=== PATIENT | male | born 1995 | race Caucasian/White ===

== ENCOUNTER 2020-06-10 02:06 | Emergency (ER) | payer BC, SELFPAY ==
[2020-06-10 02:21] VITALS: BP 104/65; PULSE 83; RESP 24; TEMP 36.6; O2SAT 98; BMI 32.1
--- NOTE | 2020-06-10 02:36 | CTR_ITS ---
PROCEDURE INFORMATION: Exam: CT Abdomen And Pelvis Without Contrast Exam date and time: 06/10/2020 2:50 AM Age: 24 years old Clinical indication: Abdominal pain; Flank; Right; Additional info: R flank pain TECHNIQUE: Imaging protocol: Computed tomography of the abdomen and pelvis without contrast. Radiation optimization: All CT scans at this facility use at least one of these dose optimization techniques: automated exposure control; mA and/or kV adjustment per patient size (includes targeted exams where dose is matched to clinical indication); or iterative reconstruction. COMPARISON: CT Abdomen/Pelvis Renal [id number] 04/05/2016 1:41 PM RADIATION DOSE METRICS: Total DLP (mGy-cm): 2150.83 FINDINGS: Liver: Normal. No mass. Gallbladder and bile ducts: Normal. No calcified stones. No ductal dilation. Pancreas: Normal. No ductal dilation. Spleen: Normal. No splenomegaly. Adrenals: Normal. No mass. Kidneys and ureters: A punctate stone is seen in the right lower ureter with mild hydronephrosis. Additional bilateral nonobstructing intrarenal stones are present. Stomach and bowel: Unremarkable. No obstruction. No mucosal thickening. Appendix: No evidence of appendicitis. Intraperitoneal space: Unremarkable. No free air. No significant fluid collection. Vasculature: Unremarkable. No abdominal aortic aneurysm. Lymph nodes: Unremarkable. No enlarged lymph nodes. Bladder: Unremarkable as visualized. Reproductive: Unremarkable as visualized. Bones/joints: Unremarkable. No acute fracture. Soft tissues: A small fat containing umbilical hernia is present. CT/CT kidney stone [id number] IMPRESSION: 1. A punctate stone is seen in the right lower ureter with mild hydronephrosis. 2. Additional bilateral intrarenal stones are also seen. 3. A small umbilical hernia is present. Radiation Dose CTDIVOL = (mGy): DLP = 2150.83 (mGy-cm)
[2020-06-10 02:50] LABS: Basophils # 0.1 10^3/uL (0.0-0.1); Basophils % 0.7 %; Eosinophils # 0.1 10^3/uL (0.0-0.8); Eosinophils % 1.3 %; Hematocrit 40.8 % (42.0-52.0); Hemoglobin 13.2 g/dL (11.7-16.6); Lymphocytes # 3.2 10^3/uL (0.8-4.8); Mean Corpuscular HGB Conc 32.4 g/dL (30.0-36.0); Mean Corpuscular Hemoglobin 28.3 pg (28.0-34.0); Mean Corpuscular Volume 87.6 fL (80-94); Mean Platelet Volume 10.4 fL (7.4-10.4); Monocytes # 0.8 10^3/uL (0.2-0.9); Monocytes % 7.6 %; Neutrophils # 6.45 10^3/uL (1.8-7.7); Neutrophils % 60.1 %; Nucleated Red Blood Cells % 0 %; Platelet Count 300 10^3/cmm (130-400); Red Blood Count 4.66 10^6/uL (4.1-5.3); White Blood Count 10.7 10^3/uL (4.0-10.0)
[2020-06-10 03:03] VITALS: RESP 16
[2020-06-10] MEDS: sodium chloride 0.9% 1,000 ML 999 ML IV (03:03)
[2020-06-10] MEDS: HYDROmorphone 1 mg/mL INJ 1 mL IVP (03:03)
[2020-06-10] MEDS: ondansetron 2 mg/ML SDV 2 mL 4 MG IVP (03:03)
[2020-06-10 03:08] LABS: Alanine Aminotransferase 38 U/L (0-41); Albumin Level 4.3 g/dL (3.5-5.2); Alkaline Phosphatase 62 IU/L (40-130); Anion Gap 14.6 (5-19); Aspartate Amino Transferase 20 U/L (0-40); Blood Urea Nitrogen 23 mg/dL (6-20); Calcium 8.7 mg/dL (8.5-10.5); Carbon Dioxide 23 mmol/L (22-29); Chloride 105 mmol/L (98-107); Globulin 2.6 g/dL (1.3-4.6); Glucose 121 mg/dL (65-115); Lipase 34 U/L (13-60); Osmolality Calculated 286 mOsm/kg (285-295); Potassium 3.6 mmol/L (3.5-5.1); Sodium 139 mmol/L (136-145); Total Bilirubin 0.3 mg/dL (0.15-1.2); Total Protein 6.9 g/dL (6.6-8.7)
[2020-06-10 03:31] LABS: Add Urine Microscopic? YES; Bilirubin Urine Neg (NEGATIVE); Blood Urine 2+ (Negative); Glucose Urine UA Norm (Normal); Ketones Urine Negative (Negative); Leukocyte Esterase Urine Negative (Negative); Nitrate Urine Negative (Negative); Protein Urine Neg (Negative); Urine Appearance Clear (CLEAR); Urine Color Yellow (Yellow); Urobilinogen Urine Norm (Negative); pH Urine 5 (5-7)
[2020-06-10 03:33] LABS: WBC Urine 0-4 /hpf (0-5)
[2020-06-10 03:34] LABS: Add Urine Culture? No; Bacteria Urine TRACE; Mucus Urine TRACE; Squamous Epithelial Cell Urine 0-4 (0-5)
[2020-06-10] MEDS: ketorolac 30 mg/mL INJ IVP (04:16)
[2020-06-10 04:17] VITALS: RESP 20
[2020-06-10] MEDS: HYDROmorphone 1 mg/mL INJ 1 mL 0.5 MG IVP (04:17)
[2020-06-10 04:40] VITALS: BP 132/88; PULSE 88; RESP 18; TEMP 36.7; O2SAT 99
--- NOTE | 2020-06-10 23:04 | W.ED.ABDPA2 ---
HPI - Abdominal Pain General: Chief Complaint: Abdominal Pain Stated Complaint: possible kidney stone Time Seen by Provider: 06/10/20 02:31 History of Present Illness: HPI narrative: 24-year-old male complains of right flank pain. The pain began around midnight. He was lying in bed. He has had pain and nausea. He has had kidney stones in the past, and the pain is similar. He denies any fever, gross hematuria, diarrhea, etc. MD elicited complaint: abdominal pain Pertinent past history: kidney stones Onset (ago): hour(s) Pain Consistency: constant Location: R flank Severity: moderate Quality: stabbing and aching Radiation: none Migration to: no migration Exacerbating factors: nothing Relieving factors: nothing Associated Symptoms: Reports nausea; Denies constipation, diarrhea, dysuria, fever(s), hematuria and vomiting Review of Systems Const: Denies: fever(s) Eyes: Denies: change in vision or blurry vision ENMT: Denies: swelling of lips/tongue, bleeding gums, change in hearing, epistaxis, post nasal drip or sinus pain Card: Denies: chest pain, palpitations, irregular heart rhythm, dyspnea on exertion or orthopnea Resp: Denies: dyspnea, productive cough, non-productive cough or wheezing GI: Reports: nausea; Denies: vomiting, diarrhea or constipation : Denies: dysuria or hematuria Musc: Reports: back pain; Denies: neck pain Skin/Breast: Denies: rash, pruritus or erythema Neuro: Denies: headache(s), dizziness or vertigo Psych: Denies: anxiety PFSH ED PFSH: Family History (Updated 05/09/20 @ 14:37 by BAILEY Orozco) Mother Kidney stone Social History (Updated 05/09/20 @ 14:38 by BAILEY Orozco) Smoking and tobacco status: current some day smoker Alcohol intake: unknown Adopted: No Caregiver/support person: No Lives independently: No Physical Exam Const: GENERAL APPEARANCE: well developed ORIENTATION/CONSCIOUSNESS: Yes oriented to person, Yes oriented to place and Yes oriented to time HENMT: COMMON NORMALS: normocephalic, external ears normal and Normal external nose present HEAD & SCALP: normocephalic FACE & SINUS: normal facial exam NOSE: Normal external nose present and No nasal discharge present EXTERNAL EAR: Yes external ears normal THROAT: posterior oropharynx normal; no peritonsillar mass Eye: COMMON NORMALS: Equal, round and reactive pupils present, EOMs intact bilaterally and conjunctivae normal EYELID: eyelids normal CONJUNCTIVA: Yes conjunctivae normal PUPIL: Yes Equal, round and reactive pupils present Neck/C-Spine: GENERAL: No tracheal deviation Chest: COMMONS NORMALS: normal inspection of the chest CHEST: No tenderness Resp: COMMON NORMALS: clear to auscultation bilaterally EFFORT & INSPECTION: No tachypneic, No respiratory distress, No retractions, No uses accessory muscles and No tracheal deviation AUSCULTATION: clear to auscultation bilaterally, no rhonchi, no wheezes and lung sounds not diminished Cardio: COMMON NORMALS: regular rate and regular rhythm RATE: regular rate RHYTHM: regular rhythm HEART SOUNDS: no murmurs PERIPHERAL PULSES: radial pulses present GI: INSPECTION: No abdominal distension AUSCULTATION: No Hyperactive bowel sounds present and No Hypoactive bowel sounds present PALPATION: No Guarding due to palpation present (GI) and No Rigid due to palpation PERCUSSION: no dullness to percussion and no tympanic to percussion : BLADDER/KIDNEY EXAM: Yes CVA tenderness on the right Back/Pelvis: GENERAL BACK: Yes CVA tenderness Neuro: SENSORIUM/ORIENTATION: Yes oriented to person, Yes oriented to place and Yes oriented to time Psych: COMMON NORMALS: mental status grossly normal Skin: COMMON NORMALS: no rashes or lesions noted GENERAL SKIN EXAM: no rashes or lesions noted Course Vital Signs: Vital signs: Vital Signs Temperature 98.0 F 06/10/20 04:40 Pulse Rate 88 06/10/20 04:40 Respiratory Rate 18 06/10/20 04:40 Blood Pressure 132/88 06/10/20 04:40 Pulse Oximetry 99 06/10/20 04:40 MDM - Abdominal Pain MDM Narrative: Medical decision making narrative: Urine shows no infection. There is hematuria. BUN is mildly elevated. Other labs are not terribly remarkable. CT shows a punctate stone in the right lower ureter consistent with his symptoms. No evidence of pyelonephritis. He should be able to pass on his own. He will be allowed home with pain medication and nausea medication. They know to return for any confounding factors. Lab Data: Labs: Lab Results 06/10/20 06/10/20 06/10/20 Range/Units 02:44 02:44 03:12 WBC 10.7 H (4.0-10.0) 10^3/ uL RBC 4.66 (4.1-5.3) 10^6/u L Hgb 13.2 (11.7-16.6) g/dL Hct 40.8 L (42.0-52.0) % MCV 87.6 (80-94) fL MCH 28.3 (28.0-34.0) pg MCHC 32.4 (30.0-36.0) g/dL RDW 13.0 (12.1-15.1) % Plt Count 300 (130-400) 10^3/c mm MPV 10.4 (7.4-10.4) fL Neut % (Auto) 60.1 % Lymph % (Auto) 30.0 % Arthur % (Auto) 7.6 % Eos % (Auto) 1.3 % Baso % (Auto) 0.7 % Neut # (Auto) 6.45 (1.8-7.7) 10^3/u L Lymph # (Auto) 3.2 (0.8-4.8) 10^3/u L Arthur # (Auto) 0.8 (0.2-0.9) 10^3/u L Eos # (Auto) 0.1 (0.0-0.8) 10^3/u L Baso # (Auto) 0.1 (0.0-0.1) 10^3/u L Nucleated RBC % (a uto) 0 % Nucleated RBCs # 0.0 /100WBC Sodium 139 (136-145) mmol/L Potassium 3.6 (3.5-5.1) mmol/L Chloride 105 (98-107) mmol/L Carbon Dioxide 23 (22-29) mmol/L Anion Gap 14.6 (5-19) BUN 23 H (6-20) mg/dL Creatinine 1.1 (0.7-1.2) mg/dL GFR Calculation 83.0 L (90-130) mL/min Glucose 121 H (65-115) mg/dL Calculated Osmolal ity 286 (285-295) mOsm/k g Calcium 8.7 (8.5-10.5) mg/dL Total Bilirubin 0.3 (0.15-1.2) mg/dL AST 20 (0-40) U/L ALT 38 (0-41) U/L Alkaline Phosphata se 62 (40-130) IU/L Total Protein 6.9 (6.6-8.7) g/dL Albumin 4.3 (3.5-5.2) g/dL Globulin 2.6 (1.3-4.6) g/dL Lipase 34 (13-60) U/L Urine Color Yellow (Yellow) Urine Appearance Clear (CLEAR) Urine pH 5 (5-7) Ur Specific Gravit y 1.020 (1.005-1.030) Urine Protein Neg (Negative) Urine Glucose (UA) Norm (Normal) Urine Ketones Negative (Negative) Urine Blood 2+ H (Negative) Urine Nitrate Negative (Negative) Urine Bilirubin Neg (NEGATIVE) Urine Urobilinogen Norm (Negative) mg/dL Ur Leukocyte Lizy ase Negative (Negative) Urine RBC 5-10 H (0-2) /hpf Urine WBC 0-4 H (0-5) /hpf Ur Squamous Epith Cells 0-4 H (0-5) Amorphous Sediment Not Reportable Urine Bacteria Trace (NONE) Urine Mucus Trace Discharge Plan Discharge Patient Disposition: Home Clinical Impression: Ureterolithiasis Condition: Stable Prescriptions: New Zofran 4 mg tablet 4 mg PO Q6H PRN (Reason: nausea and vomiting) Qty: 10 RF: 0 Percocet 7.5-325 mg tablet 1 tab PO Q6H PRN (Reason: pain) Qty: 14 RF: 0 ketorolac 10 mg tablet 10 mg PO TID PRN (Reason: pain) Qty: 10 RF: 0 Discharge Orders: Discharge Order (Routine); Ordered 06/10/20 Ordered By: Umesh Elizabeth Referrals: Abdirizak Newton DO [Primary Care Provider] - 4-7 days Discharge Diet: Advance as tolerated Discharge Activity: Increase activity as tolerated Patient Instructions: Kidney Stones (ED) Activity Restrictions/Additional Instructions: Return for fever greater than 100, worsening pain or vomiting despite treatment, other concerning symptoms. Strain your urine if you are able. Discharge Date/Time: 06/10/20 04:42 Coding Level of Care Code ED Flexographic Press Plate Setter for Ant Duffy
== END 2020-06-10 04:42 | disposition home or self-care (01) ==
PROVIDERS: Nurse Practitioner Family; Emergency Provider Emergency Medicine; PCP Family Medicine
DX: N20.1 Calculus of ureter (principal); F17.210 Nicotine dependence, cigarettes, uncomplicated
CPT/HCPCS: 12345; 74176; 80053; 81001; 83690; 85025; 96361; 96374; 96375; 96376; 99283; J1170; J1885; J2405; J7030

== ENCOUNTER 2021-03-22 09:17 | Outpatient (CLI) | payer BC, SELFPAY ==
--- NOTE | 2021-03-22 09:15 | XR_ITS ---
WS: [id number] Exam: XR KUB [id number] Date/Time of Exam: 03/22/2021 9:42 AM Reason For Exam: N20.0 - Calculus of kidney Comparison 06/10/2019. There are several tiny calcifications superimpose both kidneys and may represent renal calculi. No christie wel obstruction or free air. Visualized organ margins are intact. Bony structures appear normal. XR/XR KUB [id number] IMPRESSION: 1. Tiny calcifications superimposing both kidneys that may represent renal calc patricia. 2. No acute abdominal finding.
== END 2021-03-22 09:18 | disposition home or self-care (01) ==
PROVIDERS: PCP Family Medicine; Visit Provider Urology
DX: N20.0 Calculus of kidney (principal)
CPT/HCPCS: 74018; 81003; 82131; 82140; 82340; 82365; 82436; 82507; 82570; 83735; 83935; 84300; 88300